=== PATIENT | female | born 1960 | race Two or more races ===

== ENCOUNTER 2022-09-20 06:04 | Emergency (ER) | payer OTHER ==
[~2022-09-20] VITALS: Ht 165.1 cm; Wt 59.9 kg
[2022-09-20] MEDS ORDERED: SYNTHROID88 MCG PO (06:20)
[2022-09-20] MEDS ORDERED: CATAPRES0.3 MG (06:20)
== END 2022-09-20 09:08 | disposition left against medical advice (07) ==
LOC: ER 06:04
DX: Z53.21 Procedure and treatment not carried out due to patient leaving prior to being seen by health care provider (principal)